=== PATIENT | male | born 1990 | race Caucasian/White ===

== ENCOUNTER 2016-08-11 09:21 | Emergency (ER) | payer MEDICAID ==
[~2016-08-11] VITALS: Ht 185.4 cm; Wt 81.5 kg
[2016-08-11 09:36] VITALS: Ht 185.4 cm; Wt 81.5 kg
[2016-08-11] MEDS ORDERED: HYDROmorphONE 1 MG/ML SYG IV STA ×2 (10:03→11:36)
[2016-08-11] MEDS ORDERED: ONDANSETRON 4 MG INJ IV STA (10:03)
[2016-08-11] MEDS ORDERED: SOD CHLORIDE 0.9% 1,000 ML IV STA (10:03)
[2016-08-11 10:13] LABS: ADD SCAN DIFF NO
[2016-08-11 10:23] LABS: ADD UMIC YES; URINE BILIRUBIN (Dip) NEGATIVE (NEGATIVE); URINE BLOOD (Dip) NEGATIVE (NEGATIVE); URINE COLOR LT. YELLOW (YELLOW); URINE GLUCOSE (Dip) NEGATIVE (NEGATIVE); URINE KETONES (Dip) NEGATIVE (NEGATIVE); URINE LEUKOCYTE ESTERASE (Dip) NEGATIVE (NEGATIVE); URINE NITRITE (Dip) NEGATIVE (NEGATIVE); URINE TOTAL PROTEIN (Dip) 2+ (NEGATIVE); URINE UROBILINOGEN (Dip) 0.2 E.U./dL (0.1-1.0)
[2016-08-11] MEDS ORDERED: PANT20TA2 PO (10:25)
[2016-08-11] MEDS ORDERED: LIDOCAINE/MYLANTA 40 ML BTL PO ONE (10:30)
[2016-08-11 10:31] LABS: ALBUMIN 4.8 g/dl (3.3-4.9); ALBUMIN/GLOBULIN RATIO 1.26; BILIRUBIN,INDIRECT 0.6 mg/dl (0-1.1); BILIRUBIN,TOTAL 0.6 mg/dl (0.2-1.3); CREATININE 0.73 mg/dl (0.61-1.24); POTASSIUM 3.7 mmol/L (3.5-5.1); TOTAL PROTEIN 8.6 g/dl (6.1-8.1)
[2016-08-11 10:43] LABS: BACTERIA,URINE MANY
[2016-08-11 11:09] LABS: BASOPHILS % 0.2 % (0.0-2.0); HEMATOCRIT 41.1 % (42.0-52.0); HEMOGLOBIN 14.3 g/dl (14.0-18.0); LYMPHOCYTES # 1.1 10^3/ul (0.8-2.9); LYMPHOCYTES % 8.6 % (15.0-51.0); MEAN CORPUSCULAR HEMOGLOBIN 32.1 pg (29.0-33.0); MEAN CORPUSCULAR HGB CONC 34.8 g/dl (32.0-37.0); MEAN CORPUSCULAR VOLUME 92.4 fl (82.0-101.0); MEAN PLATELET VOLUME 11.2 fl (7.4-10.4); MONOCYTE # 0.4 10^3/ul (0.3-0.9); MONOCYTES % 3.4 % (0.0-11.0); NEUTROPHIL # 11.3 10^3/ul (1.6-7.5); NEUTROPHILS % 87.5 % (39.0-77.0); PLATELET COUNT 234 10^3/UL (140-415); RED BLOOD COUNT 4.45 10^6/ul (4.70-6.10); RED CELL DISTRIBUTION WIDTH 12.1 % (11.5-14.5); WHITE BLOOD COUNT 12.9 10^3/ul (4.8-10.8)
[2016-08-11] MEDS ORDERED: ONDA4TAB14 PO (11:46)
[2016-08-11] MEDS ORDERED: PANT40TA3 PO (11:46)
[2016-08-11 12:00] VITALS: BP 122/85; PULSE 80; RESP 20; TEMP 98
--- NOTE | 2016-08-11 13:56 | ERD ---
ER Documentation Chief Complaint Date/Time DATE: 08/11/16 TIME: 13:53 Chief Complaint AP SINCE 0100 HPI Patient is a 25-year-old male with previous history of GI issues who says "my GI is acting up". He said the symptoms started at 1 AM. The patient denies alcohol use. He says "I think I over 8". He has vomiting as well. He has a history of GI issues and says that this feels similar. He tried Pepto-Bismol and Tums. He said that he ran out of Protonix 1 week ago. Upon review of old medical records this the patient's first visit to the ER. He does not currently have a primary doctor. ROS All systems reviewed and are negative except as per history of present illness. Medications Home Meds Active Scripts Ondansetron (Ondansetron Odt) 4 Mg Tab.rapdis, 4 MG PO Q6H Y for NAUSEA AND/OR VOMITING, #30 TAB Prov:IGOR ORTIZ MD 08/11/16 Pantoprazole* (Protonix*) 40 Mg Tablet.dr, 40 MG PO DAILY, #20 TAB Prov:IGOR ORTIZ MD 08/11/16 Reported Medications Pantoprazole* (Protonix*) 20 Mg Tablet.dr, 20 MG PO DAILY, TAB 08/11/16 Allergies Allergies: Coded Allergies: No Known Allergy (Unverified , 08/11/16) PMhx/Soc Medical and Surgical Hx: pt denies Medical Hx, pt denies Surgical Hx Hx Miscellaneous Medical Probl: Yes (ACID REFLUX) Hx Alcohol Use: No Hx Substance Use: No Hx Tobacco Use: No Smoking Status: Never smoker FmHx Family History: diabetes Physical Exam Vitals Vital Signs Date Time Temp Pulse Resp B/P Pulse Ox O2 Delivery O2 Flow Rate FiO2 08/11/16 12:00 98.0 80 20 122/85 98 Room Air 08/11/16 10:31 80 20 129/86 98 Room Air 08/11/16 09:36 97.8 80 18 142/71 99 Physical Exam Const: Moderate distress secondary to pain Head: Atraumatic Eyes: Normal Conjunctiva ENT: Normal External Ears, Nose and Mouth. Neck: Full range of motion..~ No meningismus. Resp: Clear to auscultation bilaterally Cardio: Regular rate and rhythm, no murmurs Abd: Soft, diffuse tenderness to palpation without rebound or guarding Skin: No petechiae or rashes Back: No midline or flank tenderness Ext: No cyanosis, or edema Neur: Awake and alert Psych: Normal Mood and Affect Result Diagram: 08/11/16 1007 08/11/16 1007 Results 24 hrs Laboratory Tests Test 08/11/16 10:07 White Blood Count 12.910^3/ul Red Blood Count 4.4510^6/ul Hemoglobin 14.3g/dl Hematocrit 41.1% Mean Corpuscular Volume 92.4fl Mean Corpuscular Hemoglobin 32.1pg Mean Corpuscular Hemoglobin Concent 34.8g/dl Red Cell Distribution Width 12.1% Platelet Count 98375^3/UL Mean Platelet Volume 11.2fl Neutrophils % 87.5% Lymphocytes % 8.6% Monocytes % 3.4% Eosinophils % 0.0% Basophils % 0.2% Nucleated Red Blood Cells % 0.0/100WBC Neutrophils # 11.310^3/ul Lymphocytes # 1.110^3/ul Monocytes # 0.410^3/ul Eosinophils # 0.010^3/ul Basophils # 0.010^3/ul Nucleated Red Blood Cells # 0.010^3/ul Urine Color LT. YELLOW Urine Clarity CLEAR Urine pH 8.5 Urine Specific [place] 1.010 Urine Ketones NEGATIVE Urine Nitrite NEGATIVE Urine Bilirubin NEGATIVE Urine Urobilinogen 0.2 E.U./dL Urine Leukocyte Esterase NEGATIVE Urine Microscopic RBC 10-25/HPF Urine Microscopic WBC 5-10/HPF Urine Epithelial Cells FEW Urine Amorphous Phosphates MODERATE Urine Bacteria MANY Urine Hemoglobin NEGATIVE Urine Glucose NEGATIVE% Urine Total Protein 2+ Sodium Level 142mmol/L Potassium Level 3.7mmol/L Chloride Level 108mmol/L Carbon Dioxide Level 24mmol/L Anion Gap 14 Blood Urea Nitrogen 12mg/dl Creatinine 0.73mg/dl Glucose Level 138mg/dl Calcium Level 10.0mg/dl Total Bilirubin 0.6mg/dl Direct Bilirubin 0.00mg/dl Indirect Bilirubin 0.6mg/dl Aspartate Amino Transf (AST/SGOT) 20IU/L Alanine Aminotransferase (ALT/SGPT) 30IU/L Alkaline Phosphatase 103IU/L Total Protein 8.6g/dl Albumin 4.8g/dl Globulin 3.80g/dl Albumin/Globulin Ratio 1.26 Lipase 54U/L Current Medications Medications (Trade) Dose Ordered Sig/Stephie Route PRN Reason Start Time Stop Time Status Last Admin Dose Admin Sodium Chloride (NS) 1,000 ml @ 1,000 mls/hr Q1H STAT IV 08/11/16 10:03 08/11/16 11:02 DC 08/11/16 10:13 Hydromorphone HCl (Dilaudid) 1 mg ONCE STAT IV 08/11/16 10:03 08/11/16 10:04 DC 08/11/16 10:12 Ondansetron HCl (Zofran Inj) 4 mg ONCE STAT IV 08/11/16 10:03 08/11/16 10:04 DC 08/11/16 10:13 Miscellaneous Medication (Gi Cocktail (2)) 40 ml ONCE ONCE PO 08/11/16 10:30 08/11/16 10:31 DC 08/11/16 10:12 Hydromorphone HCl (Dilaudid) 1 mg ONCE STAT IV 08/11/16 11:36 08/11/16 11:37 DC 08/11/16 11:51 Procedures/MDM Patient is a 25-year-old male presents with acute abdominal pain and vomiting. At this point I doubt significant intra-abdominal process. Laboratory studies are basically normal. I doubt appendicitis, cholecystitis, pancreatitis, or bowel obstruction. I believe outpatient management is appropriate. At this point I believe the risks of a CT scan of the abdomen pelvis outweigh the benefits. Departure Diagnosis: Primary Impression: Abdominal pain Abdominal location: generalized Qualified Code: R10.84 - Generalized abdominal pain Condition: Fair Patient Instructions: Abdominal Pain Referrals: COUNTS INCLUDE 234 BEDS AT THE [facility] YOU HAVE RECEIVED A MEDICAL SCREENING EXAM AND THE RESULTS INDICATE THAT YOU DO NOT HAVE A CONDITION THAT REQUIRES URGENT TREATMENT IN THE EMERGENCY DEPARTMENT. FURTHER EVALUATION AND TREATMENT OF YOUR CONDITION CAN WAIT UNTIL YOU ARE SEEN IN YOUR DOCTORS OFFICE WITHIN THE NEXT 1-2 DAYS. IT IS YOUR RESPONSIBILITY TO MAKE AN APPOINTMENT FOR FOLOW-UP CARE. IF YOU HAVE A PRIMARY DOCTOR --you should call your primary doctor and schedule an appointment IF YOU DO NOT HAVE A PRIMARY DOCTOR YOU CAN CALL OUR PHYSICIAN REFERRAL HOTLINE AT IF YOU CAN NOT AFFORD TO SEE A PHYSICIAN YOU CAN CHOSE FROM THE FOLLOWING [facility] [address] [facility]. [facility] [address] [facility]. [facility] [address] [facility] [address] [facility] [address] [facility]. [facility] [address] Additional Instructions: FOLLOW UP WITH YOUR PRIMARY CARE PHYSICIAN TOMORROW.Return to this facility if you are not improving as expected. IGOR ORTIZ MD Aug 11, 2016 13:56
== END 2016-08-11 12:00 | disposition home or self-care (01) ==
LOC: E/R 09:21
DX: R10.84 Generalized abdominal pain (principal)
CPT/HCPCS: 80053; 81001; 83690; 85025; J1170; J2405; J7030; Z7610; 36415; 81003; 96374; 96375; 96376

== ENCOUNTER 2016-08-13 08:50 | Emergency (ER) | payer MEDICAID ==
[~2016-08-13] VITALS: Ht 185.4 cm; Wt 82.5 kg
[~2016-08-13 08:50] MED LIST: ONDA4TAB14 PO; PANT20TA2 PO; PANT40TA3 PO
[2016-08-13 09:00] VITALS: Ht 185.4 cm; Wt 82.5 kg
[2016-08-13] MEDS ORDERED: ONDANSETRON 4 MG INJ IV STA ×2 (09:17→11:23)
[2016-08-13] MEDS ORDERED: SOD CHLORIDE 0.9% 1,000 ML IV STA (09:17)
[2016-08-13] MEDS ORDERED: HYDROmorphONE 1 MG/ML SYG IV STA ×3 (09:28→13:31)
[2016-08-13] MEDS ORDERED: FAMOTIDINE 20 MG INJ IV ONE ×2 (09:30→12:00)
[2016-08-13] MEDS ORDERED: LIDOCAINE/MYLANTA 40 ML BTL PO ONE (10:00)
[2016-08-13] MEDS ORDERED: PANTOPRAZOLE 40 MG INJ IV ONE (10:00)
[2016-08-13 10:34] LABS: ADD SCAN DIFF NO
[2016-08-13 10:39] LABS: BASOPHILS % 0.4 % (0.0-2.0); EOSINOPHILS % 0.4 % (0.0-7.0); HEMATOCRIT 42.4 % (42.0-52.0); HEMOGLOBIN 14.4 g/dl (14.0-18.0); LYMPHOCYTES # 2.1 10^3/ul (0.8-2.9); LYMPHOCYTES % 20.8 % (15.0-51.0); MEAN CORPUSCULAR HEMOGLOBIN 32.4 pg (29.0-33.0); MEAN CORPUSCULAR VOLUME 95.5 fl (82.0-101.0); MEAN PLATELET VOLUME 11.4 fl (7.4-10.4); MONOCYTE # 0.5 10^3/ul (0.3-0.9); MONOCYTES % 5.2 % (0.0-11.0); NEUTROPHIL # 7.4 10^3/ul (1.6-7.5); PLATELET COUNT 220 10^3/UL (140-415); RED BLOOD COUNT 4.44 10^6/ul (4.70-6.10); RED CELL DISTRIBUTION WIDTH 12.3 % (11.5-14.5); WHITE BLOOD COUNT 10.2 10^3/ul (4.8-10.8)
[2016-08-13 10:47] LABS: ALBUMIN 4.8 g/dl (3.3-4.9); POTASSIUM 3.8 mmol/L (3.5-5.1)
[2016-08-13 10:50] LABS: ALBUMIN/GLOBULIN RATIO 1.45; BILIRUBIN,INDIRECT 0.6 mg/dl (0-1.1); BILIRUBIN,TOTAL 0.6 mg/dl (0.2-1.3); CREATININE 0.88 mg/dl (0.61-1.24); TOTAL PROTEIN 8.1 g/dl (6.1-8.1)
[2016-08-13 10:51] LABS: CALCIUM 9.7 mg/dl (8.4-10.2)
[2016-08-13] MEDS ORDERED: IOHEXOL 300MG/ML 150 ML BTL ONE (10:54)
[2016-08-13] MEDS ORDERED: SOD CHLORIDE 0.9% 100 ML ONE (10:54)
--- NOTE | 2016-08-13 10:59 | RADRPT ---
PROCEDURE: Chest Radiograph. CLINICAL INDICATION: Left upper quadrant pain. Vomiting. TECHNIQUE: 2 frontal views of the chest COMPARISON: None available FINDINGS: The cardiomediastinal silhouette is within normal limits. No infiltrate or effusion is seen. Th e bones are intact. IMPRESSION: 1. Unremarkable chest radiograph. RPTAT: KK .Trevor Zavala MD, MD Date Time Electronically viewed and signed by .Trevor Zavala MD, on 08/13/2016 10:58 .B/
--- NOTE | 2016-08-13 11:09 | ERD ---
ER Documentation Chief Complaint Date/Time DATE: 08/13/16 TIME: 11:07 Chief Complaint CAME IN VIA INTAKE DUE TO ABDOMINAL PAIN HPI 25-year-old male with history of "GI issues" comes emergency department with recurring abdominal pain in the left upper quadrant over the last 4-5 days. Patient's pain is severe, in the left upper quadrant radiating to the epigastric region, without any relief with medications. She states that he ran out of Protonix about a week ago, he was seen and evaluated earlier this week and was given a prescription for Protonix and Zofran however he states that the medications "are not working". He does have a history of gastritis, and he reports that he smoked marijuana last week about 6 days ago. He denies any chest pain, shortness of breath. He reports normal stools, no black, tarry stools or bright red blood per rectum. ROS All systems reviewed and are negative except as per history of present illness. Medications Home Meds Active Scripts Ranitidine Hcl* (Zantac*) 150 Mg Tablet, 150 MG PO BID Y for EPIGASTRIC PAIN, # 60 TAB Prov:JASEN GONZALEZ PA-C 08/13/16 Lorazepam* (Ativan*) 0.5 Mg Tablet, 0.5 MG PO Q8, #10 TAB Prov:JASEN GONZALEZ PA-C 08/13/16 Ondansetron (Ondansetron Odt) 4 Mg Tab.rapdis, 4 MG PO Q6H Y for NAUSEA AND/OR VOMITING, #30 TAB Prov:IGOR ORTIZ MD 08/11/16 Pantoprazole* (Protonix*) 40 Mg Tablet.dr, 40 MG PO DAILY, #20 TAB Prov:IGOR ORTIZ MD 08/11/16 Reported Medications Pantoprazole* (Protonix*) 20 Mg Tablet.dr, 20 MG PO DAILY, TAB 08/11/16 Allergies Allergies: Coded Allergies: No Known Allergy (Unverified , 08/11/16) PMhx/Soc History of Surgery: No Anesthesia Reaction: No Hx Neurological Disorder: No Hx Respiratory Disorders: No Hx Cardiac Disorders: No Hx Psychiatric Problems: No Hx Miscellaneous Medical Probl: Yes (ACID REFLUX) Hx Alcohol Use: No Hx Substance Use: No Hx Tobacco Use: No Smoking Status: Never smoker Physical Exam Vitals Vital Signs Date Time Temp Pulse Resp B/P Pulse Ox O2 Delivery O2 Flow Rate FiO2 08/13/16 14:38 98.3 73 18 114/59 96 Room Air 08/13/16 09:00 98.0 74 18 134/79 98 Physical Exam General: Well-developed, well-nourished. Patient is acutely in distress secondary to pain. HEENT: Head is normocephalic, atraumatic. No scleral icterus. Neck: Supple. Nontender. Lungs: Clear to auscultation. Normal air movement. Heart: Regular rate and rhythm. S1 and S2 are normal. No murmurs, gallops, or rubs. Abdomen: Soft, tender in the epigastric and left upper quadrant, nondistended. Bowel sounds are normoactive. Extremities: No clubbing or cyanosis. Normal pulses. Moving extremities x 4. No weakness. Neurologic: Alert and oriented 3. No focal deficits. Skin: Normal turgor. No rash or lesions. Result Diagram: 08/13/16 0940 08/13/16 0940 Results 24 hrs Laboratory Tests Test 08/13/16 09:40 08/13/16 11:25 White Blood Count 10.210^3/ul Red Blood Count 4.4410^6/ul Hemoglobin 14.4g/dl Hematocrit 42.4% Mean Corpuscular Volume 95.5fl Mean Corpuscular Hemoglobin 32.4pg Mean Corpuscular Hemoglobin Concent 34.0g/dl Red Cell Distribution Width 12.3% Platelet Count 50730^3/UL Mean Platelet Volume 11.4fl Neutrophils % 73.0% Lymphocytes % 20.8% Monocytes % 5.2% Eosinophils % 0.4% Basophils % 0.4% Nucleated Red Blood Cells % 0.0/100WBC Neutrophils # 7.410^3/ul Lymphocytes # 2.110^3/ul Monocytes # 0.510^3/ul Eosinophils # 0.010^3/ul Basophils # 0.010^3/ul Nucleated Red Blood Cells # 0.010^3/ul Sodium Level 141mmol/L Potassium Level 3.8mmol/L Chloride Level 103mmol/L Carbon Dioxide Level 26mmol/L Anion Gap 16 Blood Urea Nitrogen 13mg/dl Creatinine 0.88mg/dl Glucose Level 113mg/dl Calcium Level 9.7mg/dl Phosphorus Level 3.1mg/dl Magnesium Level 2.0mg/dl Total Bilirubin 0.6mg/dl Direct Bilirubin 0.00mg/dl Indirect Bilirubin 0.6mg/dl Aspartate Amino Transf (AST/SGOT) 20IU/L Alanine Aminotransferase (ALT/SGPT) 25IU/L Alkaline Phosphatase 79IU/L Total Protein 8.1g/dl Albumin 4.8g/dl Globulin 3.30g/dl Albumin/Globulin Ratio 1.45 Lipase 55U/L Urine Color LT. YELLOW Urine Clarity CLEAR Urine pH 8.0 Urine Specific [place] 1.010 Urine Ketones NEGATIVE Urine Nitrite NEGATIVE Urine Bilirubin NEGATIVE Urine Urobilinogen 0.2 E.U./dL Urine Leukocyte Esterase NEGATIVE Urine Hemoglobin NEGATIVE Urine Glucose NEGATIVE% Urine Total Protein NEGATIVE Urine Opiates Screen Positive Urine Barbiturates Negative Urine Amphetamines Screen Negative Urine Benzodiazepines Screen Negative Urine Cocaine Screen Negative Urine Cannabinoids Positive Current Medications Medications (Trade) Dose Ordered Sig/Stephie Route PRN Reason Start Time Stop Time Status Last Admin Dose Admin Sodium Chloride (NS) 1,000 ml @ 1,000 mls/hr Q1H STAT IV 08/13/16 09:17 08/13/16 10:16 DC 08/13/16 09:29 Ondansetron HCl (Zofran Inj) 4 mg ONCE STAT IV 08/13/16 09:17 08/13/16 09:18 DC 08/13/16 09:29 Famotidine (Pepcid Iv) 20 mg ONCE ONCE IV 08/13/16 09:30 08/13/16 09:31 DC 08/13/16 09:29 Hydromorphone HCl (Dilaudid) 1 mg ONCE STAT IV 08/13/16 09:28 08/13/16 09:29 DC 08/13/16 09:35 Miscellaneous Medication (Gi Cocktail (2)) 40 ml ONCE ONCE PO 08/13/16 10:00 08/13/16 10:01 DC 08/13/16 09:45 Hydromorphone HCl (Dilaudid) 1 mg ONCE STAT IV 08/13/16 09:59 08/13/16 10:00 DC 08/13/16 10:06 Pantoprazole (Protonix Iv) 40 mg ONCE ONCE IV 08/13/16 10:00 08/13/16 10:01 DC 08/13/16 10:06 IV Flush 10 ml 10 ml STK-MED ONCE .ROUTE 08/13/16 10:54 08/13/16 10:55 DC 08/13/16 11:07 Sodium Chloride (NS) 100 ml @ ud STK-MED ONCE .ROUTE 08/13/16 10:54 08/13/16 10:55 DC 08/13/16 11:07 Iohexol (Omnipaque 300mg/ ml) 150 ml STK-MED ONCE .ROUTE 08/13/16 10:54 08/13/16 10:55 DC 08/13/16 11:08 Ondansetron HCl (Zofran Inj) 4 mg ONCE STAT IV 08/13/16 11:23 08/13/16 11:24 DC 08/13/16 11:50 Famotidine (Pepcid Iv) 20 mg ONCE ONCE IV 08/13/16 12:00 08/13/16 12:01 DC 08/13/16 12:03 Diclofenac Sodium (Dyloject) 37.5 mg ONCE STAT IV 08/13/16 12:54 08/13/16 12:59 DC Morphine Sulfate (morphine) 4 mg ONCE STAT IV 08/13/16 12:58 08/13/16 12:59 DC 08/13/16 13:04 Morphine Sulfate (morphine) 4 mg ONCE STAT IV 08/13/16 13:24 08/13/16 13:32 DC Lorazepam (Ativan) 1 mg ONCE ONCE IV 08/13/16 14:00 08/13/16 14:01 DC 08/13/16 13:59 Hydromorphone HCl (Dilaudid) 1 mg ONCE STAT IV 08/13/16 13:31 08/13/16 13:33 DC 08/13/16 13:56 PROCEDURE: Chest Radiograph. CLINICAL INDICATION: Left upper quadrant pain. Vomiting. TECHNIQUE: 2 frontal views of the chest COMPARISON: None available FINDINGS: The cardiomediastinal silhouette is within normal limits. No infiltrate or effusion is seen. The bones are intact. IMPRESSION: 1. Unremarkable chest radiograph. RPTAT: KK .Trevor Zavala MD, Date Time Electronically viewed and signed by .Trevor Zavala MD, MD on 2016 10:58 .B/ PROCEDURE: CT abdomen and pelvis with contrast. CLINICAL INDICATION: Left upper quadrant pain. Intractable vomiting. TECHNIQUE: CT scan of the abdomen and pelvis with contrast was performed on a multi-slice CT scanner. The patient was scanned following the uncomplicated intravenous administration 100 cc of Omnipaque 300. Coronal and sagittal reformatted images were obtained from the axial source images. One or more of the following does reduction techniques were used: Automated exposure control; adjustment of the mA and/or kV according to patient size; use of the aorta of reconstruction technique. Images were reviewed on a high-resolution PACS workstation. The total exam CTDI equals 10.0 mGy and the total exam DLP equals 631.45 mGy-cm. COMPARISON: None available FINDINGS: The lung bases are clear. The heart size is normal, without pericardial thickening or effusion. The liver, spleen, and pancreas are normal. The gallbladder is normal. The adrenal glands are symmetric and normal. The kidneys show normal and symmetric enhancement. No renal calculus or obstructive uropathy is seen. The aorta is of normal caliber. There is no retroperitoneal lymph node enlargment. There is no evidence of large or small bowel obstruction. A normal appendix is not clearly identified, however, there is no secondary evidence of acute appendicitis. No free fluid or fluid collections are identified. No inflammatory changes are seen. The bladder is within normal limits There is no evidence of pelvic sidewall lymph node enlargement. There is trace pelvic free fluid which can be seen in normal young females. The inguinal regions are unremarkable. The osseous structures are intact. IMPRESSION: 1. No CT evidence of acute intra-abdominal or pelvic process. 2. Trace pelvic free fluid which can be seen in normal young males. 3. Otherwise unremarkable CT appearance of the abdomen pelvis. RPTAT: KK .Trevor Zavala MD, MD Date Time Electronically viewed and signed by .Trevor Zavala MD, MD on 2016 11:26 PROCEDURE: MRA abdomen CLINICAL INDICATION: Intractable left upper quadrant pain and vomiting for 4 days. TECHNIQUE: Contrast-enhanced three stage MRA of the abdomen was performed after IV administration of 20cc Magnevist. 3-D MIP reconstructed images were obtained . COMPARISON: Correlation with CT from 08/13/2016. FINDINGS: Abdominal aorta is normal in caliber. The origins of the celiac trunk, SMA, and renal arteries are patent without gross evidence of significant stenosis. There is a small accessory right renal artery extending to the superior pole of the right kidney. Bilateral common iliac arteries are patent without stenosis. The liver, spleen, kidneys, adrenal glands, pancreas, and stomach demonstrate normal signal intensity and morphology. IMPRESSION: Unremarkable MRA abdomen. RPTAT: JJ .Ton Azar MD, Date Time Electronically viewed and signed by .Ton Azar MD, MD on 08/13/2016 14:59 Procedures/MDM ED course: Patient was placed on a monitor, an IV line established, blood and urine were obtained. Initially he was given Pepcid 20 mg IV as well as Zofran 4 mg IV. Still complained of severe pain and was given Dilaudid 1 mg IV followed by Protonix 40 mg IV. Patient still complained of severe pain and was given an additional Dilaudid 1 mg, and he was able to have some resolution of pain and subsequently the pain returned with some nausea. He was given Pepcid 20 mg IV as well as an additional Zofran 4 mg IV. At this point patient was still in severe pain, I spoke with attending physician , Dr. De León who suggested that we rule out any ischemia. At this point MRA of the abdomen was ordered. Patient still continues to complain of severe pain, Dilaudid 1 mg as well as Ativan 1 mg IV was administered. He was kept on 2 L nasal cannula in the MRI machine, saturating at 98% on room air. Patient reports that he had immediate relief of his pain after the Ativan was given. Reassessment of the patient showed a soft abdomen, there is no rigidity , he is pain-free at this time. MDM: 25-year-old male comes in with cyclical vomiting associated with left upper quadrant abdominal pain, stress versus gastritis likely. Differentials considered include upper GI bleed, pancreatitis, dissection, acute coronary syndrome, pulmonary embolus, mesenteric ischemia, acute hepatobiliary process, appendicitis, diverticulitis and among others. He has a normal white blood cell count, electrolytes are normal, he does not show signs of dehydration. He presented with severe pain, associated with nausea and dry heaving. Clinically at this time after receiving Ativan the patient has 0 out of 10 pain. 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 He reports that he usually will wait until the end of the day and therefore his "GI issues" have worsened. He states that he sees a primary care physician at [facility], given his response to Ativan I have advised him to follow-up with his primary care physician to speak with them regarding a referral to psychology. Patient feels comfortable with this plan and will be discharged home. He was advised to continue Protonix, also be given ranitidine and a short course of Ativan for home. The case was reviewed and discussed with Dr. De León who agrees with the plan of care including labs, treatment, and advanced imaging as appropriate. Departure Diagnosis: Primary Impression: Abdominal pain Condition: JASEN Seay PA-C Aug 13, 2016 11:09
--- NOTE | 2016-08-13 11:26 | RADRPT ---
PROCEDURE: CT abdomen and pelvis with contrast. CLINICAL INDICATION: Left upper quadrant pain. Intractable vomiting. TECHNIQUE: CT scan of the abdomen and pelvis with contrast [facility] The patient was scanned following the uncomplicated intravenous administration 100 cc of Omnipa que 300. Coronal and sagittal reformatted images were obtained from the axial source images. One or more of the following does reduction techniques were used: Automated exposure control; adjustment of the mA and/or kV according to patient size; use of the aorta of reconstruction technique. Images were reviewed on a high-resolution PACS workstation. The total exam CTDI equals 10.0 mGy and the tot al exam DLP equals 631.45 mGy-cm. COMPARISON: None available FINDINGS: The lung bases are clear. The heart size is normal, without pericardial thickening or effusion. The liver, spleen, and pancreas are normal. The gallbladder is normal. The adrenal glands are symmetric and normal. The kidneys show normal and symmetric enhancement. No renal calculus or obstructive uropathy is seen. The aorta is of normal caliber. There is no retroperitoneal lymph node enlargment. There is no evidence of large or small bowel obstruction. A normal appendix is not clearly identifie d, however, there is no secondary evidence of acute appendicitis. No free fluid or fluid collections are identified. No inflammatory changes are seen. The bladder is within normal limits There is no evidence of pelvic sidewall lymph node enlargement. There is trace pelvic free fluid which can be seen in normal young females. The inguinal regions are unremarkable. The osseous structures are intact. IMPRESSION: 1. No CT evidence of acute intra-abdominal or pelvic process. 2. Trace pelvic free fluid which can be seen in normal young males. 3. Otherwise unremarkable CT appearance of the abdomen pelvis. RPTAT: KK .Trevor Zavala MD, MD Date Time Electronically viewed and signed by .Trevor Zavala MD, MD on 08/13/2016 11:26 .B/
[2016-08-13 12:29] LABS: ADD UMIC NO; URINE BILIRUBIN (Dip) NEGATIVE (NEGATIVE); URINE BLOOD (Dip) NEGATIVE (NEGATIVE); URINE COLOR LT. YELLOW (YELLOW); URINE GLUCOSE (Dip) NEGATIVE (NEGATIVE); URINE KETONES (Dip) NEGATIVE (NEGATIVE); URINE LEUKOCYTE ESTERASE (Dip) NEGATIVE (NEGATIVE); URINE NITRITE (Dip) NEGATIVE (NEGATIVE); URINE TOTAL PROTEIN (Dip) NEGATIVE (NEGATIVE); URINE UROBILINOGEN (Dip) 0.2 E.U./dL (0.1-1.0)
[2016-08-13 12:37] LABS: BENZODIAZEPINES Negative (NEGATIVE)
[2016-08-13 12:38] LABS: BARBITURATES Negative (NEGATIVE); OPIATES Positive (NEGATIVE)
[2016-08-13 12:40] LABS: CANNABINOIDS Positive (NEGATIVE); COCAINE Negative (NEGATIVE)
[2016-08-13] MEDS ORDERED: DICLOFENAC SODIUM 37.5 MG/ML VIAL IV STA (12:54)
[2016-08-13] MEDS ORDERED: morphine 4 MG/ML VIAL IV STA ×2 (12:58→13:24)
[2016-08-13] MEDS ORDERED: LORAZEPAM 2 MG INJ IV ONE (14:00)
[2016-08-13 14:38] VITALS: BP 114/59; PULSE 73; RESP 18; TEMP 98.3
--- NOTE | 2016-08-13 14:59 | RADRPT ---
PROCEDURE: MRA abdomen CLINICAL INDICATION: Intractable left upper quadrant pain and vomiting for 4 days. TECHNIQUE: Contrast-enhanced three stage MRA of the abdomen was performed after IV administration of 20cc Magnevist. 3-D MIP reconstructed images were obtained . COMPARISON: Correlation with CT from 08/13/2016. FINDINGS: Abdominal aorta is normal in caliber. The origins of the celiac trunk, SMA, and renal arteries are patent without gross evidence of significant stenosis. There is a small accessory right renal artery extending to the superior pole of the right kidney. Bilateral common iliac arteries are patent wit hout stenosis. The liver, spleen, kidneys, adrenal glands, pancreas, and stomach demonstrate normal signal intensity and morphology. IMPRESSION: Unremarkable MRA abdomen. RPTAT: JJ .Ton Azar MD, Date Time Electronically viewed and signed by .Ton Azar MD, on 08/13/2016 14:59 .A/
[2016-08-13] MEDS ORDERED: LORA-441 PO (15:13)
[2016-08-13] MEDS ORDERED: RANI150T9 PO (15:13)
[2016-08-13] MEDS ORDERED: LIDO20SO19 MM (15:33)
[2016-08-13] MEDS ORDERED: LIDO20SO19 PO (15:37)
== END 2016-08-13 15:35 | disposition home or self-care (01) ==
LOC: FTE 08:50
DX: R10.12 Left upper quadrant pain (principal); R11.10 Vomiting, unspecified
CPT/HCPCS: 36415; 71010; 74177; 74185; 80053; 80307; 81003; 83690; 83735; 84100; 85025; 96374; 96375; 96376; C9113; J1170; J2060; J2270; J2405; J7030; Q9967; Z7502; Z7610

== ENCOUNTER 2016-12-13 23:44 | Emergency (ER) | payer MEDICAID ==
[~2016-12-13] VITALS: Ht 182.9 cm; Wt 81.8 kg
[~2016-12-13 23:44] MED LIST changes: +LIDO20SO19 PO; +LORA-441 PO; +RANI150T9 PO
[2016-12-13 23:51] VITALS: Ht 182.9 cm; Wt 81.8 kg
[2016-12-14] MEDS ORDERED: LIDOCAINE/MYLANTA 40 ML BTL PO STA
[2016-12-14] MEDS ORDERED: ONDANSETRON 4 MG INJ IV STA (00:10)
--- NOTE | 2016-12-14 00:27 | ERD ---
ER Documentation Chief Complaint Date/Time DATE: 12/14/16 TIME: 00:26 Chief Complaint had some drink today, now he's in epigastric pain,hx gastritis HPI 26-year-old male with a history of gastritis presents emergency department with epigastric abdominal pain with nausea, vomiting. Patient states that he Had 3-1 /2 beers tonight, and has had a similar episode occurred in July 2016, I was a provider who had seen him and his symptoms improved with Ativan. He denies chest pain, shortness breath, fevers or chills.He denies drug use. He states that he last smoked marijuana 2-3 months ago. ROS All systems reviewed and are negative except as per history of present illness. Medications Home Meds Active Scripts Ondansetron (Ondansetron Odt) 4 Mg Tab.rapdis, 4 MG PO Q6H Y for NAUSEA AND/OR VOMITING, #10 TAB Prov:JASEN GONZALEZ PA-C 12/14/16 Pantoprazole* (Protonix*) 20 Mg Tablet.dr, 20 MG PO DAILY, #60 TAB Prov:JASEN GONZALEZ PA-C 12/14/16 Ranitidine Hcl* (Zantac*) 150 Mg Tablet, 150 MG PO BID Y for EPIGASTRIC PAIN, # 90 TAB Prov:JASEN GNOZALEZ PA-C 12/14/16 Lidocaine (Lidocaine Viscous) 100 Ml Soln, 10 ML PO DAILY, #100 Prov:JASEN GONZALEZ PA-C 08/13/16 Ranitidine Hcl* (Zantac*) 150 Mg Tablet, 150 MG PO BID Y for EPIGASTRIC PAIN, # 60 TAB Prov:JASEN GONZALEZ PA-C 08/13/16 Lorazepam* (Ativan*) 0.5 Mg Tablet, 0.5 MG PO Q8, #10 TAB Prov:JASEN GONZALEZ PA-C 08/13/16 Ondansetron (Ondansetron Odt) 4 Mg Tab.rapdis, 4 MG PO Q6H Y for NAUSEA AND/OR VOMITING, #30 TAB Prov:IGOR ORTIZ MD 08/11/16 Pantoprazole* (Protonix*) 40 Mg Tablet.dr, 40 MG PO DAILY, #20 TAB Prov:IGOR ORTIZ MD 08/11/16 Reported Medications Pantoprazole* (Protonix*) 20 Mg Tablet.dr, 20 MG PO DAILY, TAB 08/11/16 Allergies Allergies: Coded Allergies: No Known Allergy (Unverified , 08/11/16) PMhx/Soc History of Surgery: No Anesthesia Reaction: No Hx Neurological Disorder: No Hx Respiratory Disorders: No Hx Cardiac Disorders: No Hx Psychiatric Problems: No Hx Miscellaneous Medical Probl: Yes (ACID REFLUX) Hx Alcohol Use: No Hx Substance Use: No Hx Tobacco Use: No Physical Exam Vitals Vital Signs Date Time Temp Pulse Resp B/P Pulse Ox O2 Delivery O2 Flow Rate FiO2 12/13/16 23:51 98.0 91 18 158/81 97 Physical Exam General: Patient is in acute distress, due to pain and nausea Head: atraumatic. No scleral icterus. Pupils are equal, round, and reactive. Oral mucous membranes are moist. No pharyngeal erythema. Neck: Supple. Nontender. Lungs: Clear to auscultation. Normal air movement. Heart: Regular rate and rhythm. S1 and S2 are normal. No murmurs, gallops, or rubs. Abdomen: Soft, nontender, nondistended. Bowel sounds are normoactive. Extremities: No clubbing or cyanosis. Normal pulses. Moving extremities x 4. No weakness. Neurologic: Alert and oriented 3. No focal deficits. Skin: Normal turgor. No rash or lesions. Result Diagram: 12/14/165 12/14/16 0025 Results 24 hrs Laboratory Tests Test 12/14/16 00:25 White Blood Count 16.410^3/ul Red Blood Count 4.5410^6/ul Hemoglobin 14.3g/dl Hematocrit 42.4% Mean Corpuscular Volume 93.4fl Mean Corpuscular Hemoglobin 31.5pg Mean Corpuscular Hemoglobin Concent 33.7g/dl Red Cell Distribution Width 11.9% Platelet Count 50467^3/UL Mean Platelet Volume 11.3fl Neutrophils % 74.3% Lymphocytes % 19.1% Monocytes % 4.9% Eosinophils % 1.0% Basophils % 0.4% Nucleated Red Blood Cells % 0.0/100WBC Neutrophils # (Manual) 12.210^3/ul Lymphocytes # 3.110^3/ul Monocytes # 0.810^3/ul Eosinophils # 0.210^3/ul Basophils # 0.110^3/ul Nucleated Red Blood Cells # 0.010^3/ul Sodium Level 144mmol/L Potassium Level 3.6mmol/L Chloride Level 100mmol/L Carbon Dioxide Level 25mmol/L Anion Gap 23 Blood Urea Nitrogen 17mg/dl Creatinine 0.95mg/dl Glucose Level 94mg/dl Calcium Level 9.9mg/dl Total Bilirubin 0.4mg/dl Direct Bilirubin 0.00mg/dl Indirect Bilirubin 0.4mg/dl Aspartate Amino Transf (AST/SGOT) 20IU/L Alanine Aminotransferase (ALT/SGPT) 30IU/L Alkaline Phosphatase 86IU/L Total Protein 8.7g/dl Albumin 4.8g/dl Globulin 3.90g/dl Albumin/Globulin Ratio 1.23 Lipase 290U/L Current Medications Medications (Trade) Dose Ordered Sig/Stephie Route PRN Reason Start Time Stop Time Status Last Admin Dose Admin Miscellaneous Medication (Gi Cocktail (2)) 40 ml ONCE STAT PO 12/14/16 00:00 12/14/16 00:11 DC Lorazepam (Ativan) 1 mg ONCE ONCE IV 12/14/16 00:30 12/14/16 00:31 DC 12/14/16 00:28 Ondansetron HCl (Zofran Inj) 4 mg ONCE STAT IV 12/14/16 00:10 12/14/16 00:12 DC 12/14/16 00:28 Famotidine (Pepcid Iv) 20 mg ONCE ONCE IV 12/14/16 01:00 12/14/16 01:01 OH 12/14/16 00:43 Morphine Sulfate 4 mg 4 mg ONCE STAT IV 12/14/16 00:36 12/14/16 00:38 OH 12/14/16 00:43 Sodium Chloride (NS) 1,000 ml @ 1,000 mls/hr Q1H ONCE IV 12/14/16 01:00 12/14/16 01:59 OH 12/14/16 00:43 Famotidine (Pepcid Iv) 20 mg ONCE ONCE IV 12/14/16 02:00 12/14/16 02:01 DC 12/14/16 01:50 Pantoprazole (Protonix Iv) 40 mg ONCE ONCE IV 12/14/16 02:00 12/14/16 02:01 OH 12/14/16 01:50 Miscellaneous Medication (Gi Cocktail (2)) 40 ml ONCE ONCE PO 12/14/16 03:00 12/14/16 03:01 12/14/16 02:44 Procedures/MDM ED course: Patient had an IV line established, blood was obtained, he was given Ativan 1 mg IV, Zofran 4 mg IV. Patient was given morphine 4 mg IV, as well as a GI cocktail. Medical decision makin-year-old male comes in with abdominal pain, this appears to be a chronic process as he has been seen by me as well as my attending physician previously for the same issue. Patient presents with evidence of abdominal pain, possibly drug-seeking behavior as he was stating that only Dilaudid would work for his pain. He is able to hold a conversation without any pain, or retching, and he fell asleep during our conversation. I do not believe that there is any indication to given further opiate pain medication in the emergency department. He was also assessed by my attending physician who agrees that he needs to follow-up with a pain specialist. He will be given information to Dr Fox. Labs are unremarkable, there is evidence of leukocytosis, likely a stress reaction from vomiting. I doubt pancreatitis, acute choledocholithiasis, cholecystitis, transaminitis. Departure Diagnosis: Primary Impression: Abdominal pain Condition: JASEN Seay PA-C Dec 14, 2016 00:27
[2016-12-14] MEDS ORDERED: LORAZEPAM 2 MG INJ IV ONE (00:30)
[2016-12-14] MEDS ORDERED: morphine 4 MG/ML VIAL IV STA (00:36)
[2016-12-14] MEDS ORDERED: FAMOTIDINE 20 MG INJ IV ONE ×2 (01:00→02:00)
[2016-12-14] MEDS ORDERED: SOD CHLORIDE 0.9% 1,000 ML IV ONE (01:00)
[2016-12-14 01:19] LABS: BASOPHIL # 0.1 10^3/ul (0.0-0.1); BASOPHILS % 0.4 % (0.0-2.0); EOSINOPHILS # 0.2 10^3/ul (0.0-0.5); HEMATOCRIT 42.4 % (42.0-52.0); HEMOGLOBIN 14.3 g/dl (14.0-18.0); LYMPHOCYTES # 3.1 10^3/ul (0.8-2.9); LYMPHOCYTES % 19.1 % (15.0-51.0); MEAN CORPUSCULAR HEMOGLOBIN 31.5 pg (29.0-33.0); MEAN CORPUSCULAR HGB CONC 33.7 g/dl (32.0-37.0); MEAN CORPUSCULAR VOLUME 93.4 fl (82.0-101.0); MEAN PLATELET VOLUME 11.3 fl (7.4-10.4); MONOCYTE # 0.8 10^3/ul (0.3-0.9); MONOCYTES % 4.9 % (0.0-11.0); NEUTROPHILS % 74.3 % (39.0-77.0); PLATELET COUNT 197 10^3/UL (140-415); RED BLOOD COUNT 4.54 10^6/ul (4.70-6.10); RED CELL DISTRIBUTION WIDTH 11.9 % (11.5-14.5); WHITE BLOOD COUNT 16.4 10^3/ul (4.8-10.8)
[2016-12-14 01:37] LABS: ALBUMIN 4.8 g/dl (3.3-4.9); ALBUMIN/GLOBULIN RATIO 1.23; BILIRUBIN,INDIRECT 0.4 mg/dl (0-1.1); BILIRUBIN,TOTAL 0.4 mg/dl (0.2-1.3); CALCIUM 9.9 mg/dl (8.4-10.2); CREATININE 0.95 mg/dl (0.61-1.24); POTASSIUM 3.6 mmol/L (3.5-5.1); TOTAL PROTEIN 8.7 g/dl (6.1-8.1)
[2016-12-14] MEDS ORDERED: PANTOPRAZOLE 40 MG INJ IV ONE (02:00)
[2016-12-14] MEDS ORDERED: PANT40TA3 PO (02:20)
[2016-12-14] MEDS ORDERED: RANI150T9 PO (02:20)
[2016-12-14] MEDS ORDERED: PANT20TA2 PO (02:20)
[2016-12-14] MEDS ORDERED: ONDA4TAB14 PO (02:31)
[2016-12-14 02:47] VITALS: BP 134/61; PULSE 57; RESP 18; TEMP 98.3
[2016-12-14] MEDS ORDERED: LIDOCAINE/MYLANTA 40 ML BTL PO ONE (03:00)
== END 2016-12-14 02:46 | disposition home or self-care (01) ==
LOC: FTE 23:44
DX: R10.13 Epigastric pain (principal); R11.2 Nausea with vomiting, unspecified
CPT/HCPCS: 36415; 80053; 83690; 85025; 96374; 96375; 96376; C9113; J2060; J2270; J2405; J7030; Z7502; Z7610

== ENCOUNTER 2017-06-12 10:34 | Emergency (ER) | END 2017-06-12 13:31 | disposition home or self-care (01) ==